=== PATIENT | male | born 1945 | race Caucasian/White ===

== ENCOUNTER → 2016-10-07 | Outpatient (CLI) | payer OTHER, BC ==
--- NOTE | 2016-10-11 11:14 | CODING QUERY MEDICAL NECESSITY ---
SUPPORTING DIAGNOSIS NEEDED A supporting diagnosis is required for the test/procedure performed on this patient in order for us to be reimbursed by the patient's insurance. Please provide a supporting diagnosis for the following test/procedure listed below next to the test name along with your signature. *If there is no additional diagnosis for this patient that would support the following test/procedure please document that below next to the test/procedure. Test(s)/Procedure(s) that require a supporting diagnosis: * PSA DIAGNOSIS: * DOS: 10/07/16 Provider Signature: Date: Thank you Racquel Lo [employer] Once completed, please kindly fax back to [phone] For questions please call [phone]
== END | disposition home or self-care (01) ==
LOC: C.LAB 14:10
PROVIDERS: ATTEND Urology
DX: R39.9 Unspecified symptoms and signs involving the genitourinary system (principal); C61 Malignant neoplasm of prostate

== ENCOUNTER → 2017-11-11 | Outpatient (CLI) | payer BC | END | disposition home or self-care (01) | LOC: C.LAB 11:42 | PROVIDERS: ATTEND Urology | DX: C61 Malignant neoplasm of prostate (principal) ==